=== PATIENT | male | born 1975 | race Asian ===

== ENCOUNTER 2022-03-20 16:05 | Outpatient (NON) | payer BC, SELFPAY ==
[2022-03-20 18:20] LABS: Microalbumin Urine Random 37.4 mg/L (0-16.7)
[2022-03-20 18:23] LABS: Creatinine Urine 98.2 mg/dL; MALB Creatinine Ratio 38.1 mg/g (0-30)
== END 2022-03-20 16:06 | disposition home or self-care (01) ==
LOC: ANHGOSHLAB 16:07
PROVIDERS: PCP Family Medicine; Visit Provider Family Medicine
DX: E11.9 Type 2 diabetes mellitus without complications (principal); Z13.228 Encounter for screening for other metabolic disorders
CPT/HCPCS: 82043